=== PATIENT | male | born 1955 | race Caucasian/White ===

== ENCOUNTER 2024-10-28 17:23 | Emergency (ER) | payer OTHER ==
[2024-10-28 17:40] VITALS: BP 151/71; PULSE 87; RESP 18; TEMP 97.7; BMI 26.5
[2024-10-28 18:11] LABS: ABSOLUTE IMMATURE GRANULOCYTES 0.05 x10^3/uL (0.0-0.031); BASOPHILS # 0.06 x10^3/uL (0.01-0.08); EOSINOPHIL % 1.9 % (0.8-7.0); EOSINOPHILS # 0.22 x10^3/uL (0.04-0.54); MCHC 32.2 g/dl (32.3-36.5); MEAN CELL VOLUME 94.0 fl (79.0-92.2); MEAN PLT VOLUME 10.6 fl (9.4-12.4); MONOCYTE # 0.85 x10^3/uL (0.30-0.82); MONOCYTE % 7.3 % (5.3-12.2); RDW 13.6 % (12.2-16.4)
[2024-10-28 18:26] LABS: INR 1.05 (0.83-1.09); PROTHROMBIN TIME (PATIENT) 11.7 SEC (9.7-13.0)
[2024-10-28 18:29] LABS: ACTIVATED PTT 32.6 SECONDS (25.2-36.5)
[2024-10-28 18:30] LABS: ALK PHOS 77.0 U/L (45-117); CO2 27.0 mmol/L (21-32); CREATININE 1.2 mg/dl (0.6-1.3); GLUCOSE,RANDOM 173.0 mg/dl (74-106); SGOT/AST 14.0 U/L (15-37); SGPT/ALT 6.0 U/L (7-52); TOT PROT 6.6 g/dl (6.4-8.2)
[2024-10-28] MEDS ORDERED: FAMOTIDINE 20 MG/50 ML IVPB 20 MG/50 ML MG IVPB ONE (18:31)
[2024-10-28] MEDS: FAMOTIDINE 20 MG/50 ML IVPB 20 MG/50 ML MG IVPB ONE (18:34)
[2024-10-28] MEDS ORDERED: LABETALOL HCL 200 MG TABLET (FP) PO ONE (20:53)
[2024-10-28 23:46] LABS: HCV DIAGNOSTIC IN-HOUSE W/RFLX NON-REACTIVE (NONREACTIVE)
[2024-10-28 23:48] LABS: HIV INTERPRETATION NEGATIVE (NEGATIVE)
== END 2024-10-28 21:06 | disposition home or self-care (01) ==
LOC: FER 17:23
PROC: 3E033GC Introduction of Other Therapeutic Substance into Peripheral Vein, Percutaneous Approach (ICD-10-PCS; principal; 2024-10-28)
DX: K52.9 Noninfective gastroenteritis and colitis, unspecified (principal); R10.84 Generalized abdominal pain; K59.00 Constipation, unspecified
CPT/HCPCS: 36415; 74177-TC; 80053; 81003; 82550; 83690; 84484; 85025; 85610; 85730; 86803; 86850; 86900; 86901; 87389; 93005; 99285-25